=== PATIENT | male | born 1985 | race African-American/Black ===

== ENCOUNTER 2023-11-23 08:50 | Outpatient (CLI) | payer BC, SELFPAY | END 2023-11-23 08:51 | disposition home or self-care (01) | PROVIDERS: PCP Family Medicine; Visit Provider Family Medicine | DX: Z00.00 Encounter for general adult medical examination without abnormal findings (principal); R03.0 Elevated blood-pressure reading, without diagnosis of hypertension; F32.9 Major depressive disorder, single episode, unspecified; Z13.6 Encounter for screening for cardiovascular disorders | CPT/HCPCS: 80053; 80061; 84443 ==

== ENCOUNTER 2023-11-28 10:08 | Outpatient (CLI) | payer BC, SELFPAY ==
--- OUTSIDE RECORDS SUMMARY | 2023-12-15 19:43 | XMS_ITS | Data Portability ---
Author Organization [facility], [facility] Address [address] [place] [address] [address] [place] [address] Assessment Encounter Date Assessment Date Assessment LastModified by Organization Details LastModified Time 12/06/2023 12/06/2023 38 Y/O MALE, SEEN FOR PHIMOSIS, TIGHT, UNABLE TO RETRACT, PAIN WITH ERECTIONS. REVIEWED OPTIONS PLAN HE WILL DECIDE ON SCHEDULING CIRC. PROCEDURE EXPLAINED IN DETAIL, RISKS, DELAY IN HEALING.ALL QUESTIONS ANSWERED. [email or web address] Not available 12/06/2023 17:37:43 Plan of Treatment Reminders Order Date Submit Date Provider Last Modified By Organization Details Last Modified Time Details Appointments None record ed. Lab None record ed. Referral None record ed. Procedures None record ed. Surgeries None record ed. Imaging None record ed. Medication Orders None record ed. Patient TargetsNo targets recorded. Patient InstructionsNo instructions recorded. Reason for Referral None Reported. Problems Name Status Onset Date Resolution Date Notes Provider Name and Address Organization Details Recorded Time Redundant prepuce and phimosis Active 4 Abdirahman Cole MD [address] [place], [place] [address], [place], [address] 12/06/2023 17:38:56 Problem Notes None recorded. Medical Equipment None Reported. Allergies No known drug allergies Medications Name Sig Start Date Stop Date Status Note LastModified by Organization Details LastModified Time escitalopram 10 mg tablet TAKE 1 TABLET BY MOUTH EVERY DAY active Not Available Not Available No t Available Vitals Date Recorded Body height Body mass index (BMI) Body weight Provider Name and Address Organization Details Last Updated DateTime 12/06/2023 175.26 cm 20.7 kg/m2 53014.93 g Kelly Chilel [facility] 12/06/2023 15:54:06 Social History Question Answer Notes LastModified by Organizat ion Details LastModified Time Tobacco Smoking Status Never Smoker Kelly boyle [facility] 12/06/2023 15:55:08 What Is Your Level Of Alcohol Consumption? Occasional Information not available 12/06/2023 What Is Your Level Of Caffeine Consumption? Moderate Information not available 12/06/2023 What Was The Date Of Your Most Recent Tobacco Screening? 12/06/2023 Information not available 12/06/2023 Sex: Unknown Functional Status None recorded. Mental Status None recorded. Family History Relationship Description Onset Age of this Age Resolved Age Notes Father Family history of stroke Mother Family history of Hypertension Medical History Condition Response Other N High Blood Pressure N Kidney Stones N Depression N Lung Disease N GERD/Acid Reflux N Sexually Transmitted Infection N Cancer N High Cholesterol N Diabetes N Bleeding Disorder N Heart Disease N Immunizations Vaccine Type Date Status Provider Name and Address Organization Details Recorded Time Tdap 05/23/2022 completed GLADYS Valdes [facility] 12/06/2023 15:54:13 Hep B, adult 05/23/2022 completed Kelly boyle [facility] 12/06/2023 15:54:13 Influenza, split virus, quadrivalent, PF 05/23/2022 completed Kelly boyle [facility] 12/06/2023 15:54:13 Past Encounters Encounter ID Performer Location Encounter Start Date Encounter Closed Date Diagnosis/Indication Diagnosis SNOMED-CT Code [id number] Abdirahman Cole MD [facility] [address] [place] [address] 12/06/2023 15:48:50 12/06/2023 17:39:15 Redundant prepuce and phimosis [id number] Health Concerns Section Related Observation LastModified by Organization Detai ls LastModified Time None Recorded Concern Status LastModified by Organization Details LastModified Time None Recorded Advance Directives Directive None Recorded Payers Encounter Date Sequence Insurance Name Policy Number Policy Rader Covered Member ID Rader Member ID Guarantor Name 12/06/2023 1 [employer] [id number] Alen Malhotra [id number] Alen Mathiasjamila Notes Date Note Type Note Provider Name and Address Organization Details Recorded Time 12/06/2023 text/html HPI Notes: 38 YO M HERE TODAY FOR PHIMOSIS . DOES NOT RETRACT , PAIN WITH ERECTIONS. INTERESTED IN CIRC. Abdirahman Cole MD [address], [address], [facility] 12/06/2023 17:39:12
--- OUTSIDE RECORDS SUMMARY | 2023-12-15 19:44 | XMS_ITS | Continuity of Care Document ---
Author Organization [facility], [facility] Address [address] [place] [place] [address] Assessment Encounter Date Assessment Date Assessment LastModified [...] and phimosis Active 4 Abdirahman Cole MD [address] [place] [address],[address], [place], [address] 12/06/2023 17:38:56 Problem Notes None recorded. [...] Updated DateTime 12/06/2023 175.26 cm 20.7 kg/m2 53022.93 g Kelly Chilel [facility] 12/06/2023 15:54:06 Social History Question Answer Notes LastModified by Organizat ion Details LastModified Time Tobacco Smoking Status Never Smoker Kelly boyle [facility] 12/06/2023 15:55:08 What Is Your Level Of Alcohol Consumption? Occasional Information not available 12/06/2023 What Is Your Level Of Caffeine Consumption? Moderate Information not available 12/06/2023 What Was The Date Of Your Most Recent Tobacco Screening? 12/06/2023 Information not available 12/06/2023 Sex: Male Functional Status None recorded. Mental Status None [...] Organization Details Recorded Time Tdap 05/23/2022 completed Kelly boyle [facility] 12/06/2023 15:54:13 Hep B, adult 05/23/2022 completed Kelly boyle [facility] 12/06/2023 15:54:13 Influenza, split virus, quadrivalent, PF 05/23/2022 completed Kelly boyle [facility] 12/06/2023 15:54:13 Past Encounters Encounter ID Performer Location Encounter Start Date Encounter Closed Date Diagnosis/Indication Diagnosis SNOMED-CT Code [id number] Abdirahman Cole MD [facility] [address] [place] [address] 12/06/2023 15:48:50 12/06/2023 17:39:15 Redundant prepuce and phimosis [id number] Health Concerns Section Related Observation LastModified by Organization Detai ls LastModified Time None Recorded Concern Status LastModified by Organization Details LastModified Time None Recorded Payers Encounter Date Sequence Insurance Name Policy Number Policy Rader Covered Member ID Rader Member ID Guarantor Name 12/06/2023 1 [id number] [id number] Alen Marya [id number] Alen Marya Notes Date Note Type Note Provider Name and Address Organization Details Recorded Time 12/06/2023 text/html HPI Notes: 38 YO M HERE TODAY FOR PHIMOSIS . DOES NOT RETRACT , PAIN WITH ERECTIONS. INTERESTED IN CIRC. Abdirahman Cole MD [address] [place] [address],[facility] [address], [place], [address], [facility] 12/06/2023 17:39:12
== END 2023-11-28 10:09 | disposition home or self-care (01) ==
LOC: NFLDREF 12-15 19:42
PROVIDERS: PCP Family Medicine; Referring Provider Family Medicine; Visit Provider Family Medicine
DX: R73.09 Other abnormal glucose (principal)
CPT/HCPCS: 82947

== ENCOUNTER 2024-05-13 09:42 | Outpatient (CLI) | payer BC, SELFPAY | END 2024-05-13 09:43 | disposition home or self-care (01) | PROVIDERS: PCP Family Medicine; Visit Provider Physician Assistant Medical | DX: E11.9 Type 2 diabetes mellitus without complications (principal); R03.0 Elevated blood-pressure reading, without diagnosis of hypertension; R63.4 Abnormal weight loss; R53.1 Weakness; R19.7 Diarrhea, unspecified | CPT/HCPCS: 82043; 82570; 84443 ==

== ENCOUNTER 2025-05-07 11:02 | Emergency (ER) | payer OTHER, BC, SELFPAY ==
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
--- OUTSIDE RECORDS SUMMARY | 2025-05-03 15:40 | XMS_ITS | Encounter Summary ---
Author Organization [facility] Address [address] [place] [address] Care Team Providers Care Landing Worker Name Role Phone Kareen Colvin PA-C Primary Care Provider Encounter Details Date Type Department Care Team (Late st Contact Info) Description 05/03/2025 3:40 PM PROGRAM ADVISOR Ancillary Procedure [facility] [address] [place] [phone] Isamar Stuart MD [address] [place] [address] Social History Tobacco Use Types Packs/Day Years Used Date Smoking Tobacco: Never Assessed Sex and Gender Information Value Date Recorded Sex Assigned at Not on file Legal Sex Male 3:00 PM PROGRAM ADVISOR Gender Identity Not on file Sexual Orientation Not on file documented as of this encounter Functional Status * Calculated C-SSRS Risk Score (Lifetime/Recent) Answer Date of Assessment Author No Risk Indicated 05/03/2025 3:16 PM PROGRAM ADVISOR Koki Salas RN * [place] Suicide Severity Rating Scale (Screener/Recent Self-Report) Question Answer Date of Assessment Author 1. Wish to be (Past 1 Month) No 025 3:16 PM PROGRAM ADVISOR Koki Arguello RN 2. Non-Specific Active Suici mervin Thoughts (Past 1 Month) No 05/03/2025 3:16 PM PROGRAM ADVISOR Oskar Arguello RN 6. Suicidal Behavior (Lifetime) No 3:16 PM PROGRAM ADVISOR FavoriteKoki RN documented as of this encounter Plan of Treatment Upcoming Encounters Date Type Department Care Team (Late st Contact Info) Description 06/25/2025 9:20 AM PROGRAM ADVISOR Office Visit [facility] Neurosurgery [facility] [address] [facility] [address] [place] [address] Isamar Stuart MD [address] [place], [place] [phone] Nolan Roblero, ROTOR PLATE WASHER [address] [facility] [address] [place], [place] [id number] 08/05/2025 9:30 AM PROGRAM ADVISOR Virtual Visit M [facility] [address] [facility] 3rd [place] [phone] Isamar Stuart MD [address] [place], [place] [address] Bhakti De La Torre PA-C [address] [place], [place] [phone] documented as of this encounter Procedures Procedure Name Priority Date/Time Associated Diagnosis Comments POC US RESUSCITATION STAT 05/03/2025 3:37 PM PROGRAM ADVISOR documented in this encounter Results * POC US RESUSCITATION (05/03/2025 3:37 PM PROGRAM ADVISOR) Anatomical Region Laterality Modality Other Impressions 05/03/2025 3:37 PM PROGRAM ADVISOR Bedside FAST (Focused Assessment with Sonography in [...] fluid within the pericardium. IMPRESSION: Negative FAST us Isamar KIRBY POCUS Final Result documented in this encounter Visit Diagnoses Not on filedocumented in this encounter Care Teams Landing Worker Relationship Specialty Start Date End Date Kareen Colvin PA-C [facility] [address] [place] [address] PCP - General Physician Organizational Effectiveness Director 05/03/25 documented as of this encounter
--- OUTSIDE RECORDS SUMMARY | 2025-05-07 11:05 | XMS_ITS | Encounter Summary ---
Author Organization [place] Address [address] [place] [address] Care Team Providers Care Social Services Name Role Phone Kareen Colvin PA-C Primary Care Provider Encounter Details Date Type Department Care Team (Latest Contact Info) Description 05/03/2025 Travel Social History Tobacco Use Types Packs/Day Years Used Date Smoking Tobacco: Never Assessed Sex and Gender Information Value Date Recorded Sex Assigned at Not on file Legal Sex Male 3:00 PM GIVING OFFICER Gender Identity Not on file Sexual Orientation Not on file documented as of this encounter Functional Status * Calculated C-SSRS Risk Score (Lifetime/Recent) Answer Date of Assessment Author No Risk Indicated 05/03/2025 3:16 PM GIVING OFFICER Koki Salas RN * [place] Suicide Severity Rating Scale (Screener/Recent Self-Report) Question Answer Date of Assessment Author 1. Wish to be (Past 1 Month) No 025 3:16 PM GIVING OFFICER Koki Arguello RN 2. Non-Specific Active Suici mervin Thoughts (Past 1 Month) No 05/03/2025 3:16 PM GIVING OFFICER Oskar Arguello RN 6. Suicidal Behavior (Lifetime) No 3:16 PM GIVING OFFICER Koki Arguello RN documented as of this encounter Plan of Treatment Upcoming Encounters Date Type Department Care Team (Late st Contact Info) Description 06/25/2025 9:20 AM GIVING OFFICER Office Visit [address] [place] [address] Isamar Stuart MD [address] [place], [place] [phone] Nolan Roblero, MECHANIC WELDER TRUCK DRIVER [address] [id number] 08/05/2025 9:30 AM GIVING OFFICER Virtual Visit [facility] [address] [place] [phone] Isamar Stuart MD [address] [place], [place] [address] Bhakti De La Torre PA-C [address] [place] [id number] documented as of this encounter Visit Diagnoses Not on filedocumented in this encounter Care Teams Social Services Relationship Specialty Start Date End Date Kareen Colvin PA-C [facility] [address] [place] [address] PCP - General Physician Gasket Notcher 05/03/25 documented as of this encounter
--- OUTSIDE RECORDS SUMMARY | 2025-05-07 11:05 | XMS_ITS | Clinical Summary ---
Author Organization [facility] Address [address], [place] [address] Care Team Providers Care Tire Worker Name Role Phone Kareen Colvin PA-C Primary Care Provider [phone] Source Comments You are receiving this document as you are listed as the primary care provider,follow-up provider, or the patient has been referred to you for consultation.This is in compliance with the Medicare and[facility] EHR Incentive Program,which states Providers who transition their patient to another setting of careor provider of care or refers their patient to another provider of care shouldprovide summary care record for each transition of care or referral. [facility] Allergies No known active allergies Medications metFORMIN XR (GLUCOPHAGE XR) 500 MG 24 hour release tabletIndicatio ns:Type 2 diabetes mellitus with hyperglycemia, without long-term current use of insulin (HRC) Take with food: Week 1: Take 1 tablet per day. Week 2: Take 2 tablets per day Week 3: Take 3 tablets per day. Week 4 and after: Take 4 tablets per day. If you get nausea, upset stomach, or diarrhea after increasing dose, decrease back to the dose you felt well on. 120 Tablet 5 5 Active Active Problems No known active problems Social History Tobacco Use Types Packs/Day Years Used Date Smoking Tobacco: Never Smokeless Tobacco: Never Tobacco Cessation:Counseling Given: Not Answered Sex and Gender Information Value Date Recorded Sex Assigned at Not on file Legal Sex Male 2:37 PM AIRCRAFT LANDING GEAR INSPECTOR Gender Identity Not on file Sexual Orientation Not on file Last Filed Vital Signs Vital Sign Reading Time Taken Comments Blood Pressure 114/76 07/18/2024 1:47 PM AIRCRAFT LANDING GEAR INSPECTOR Pulse 85 07/18/2024 1:47 PM AIRCRAFT LANDING GEAR INSPECTOR Temperature - - Respiratory Rate - - Oxygen Saturation - - Inhaled Oxygen Concentration - - Weight 63.6 kg (140 lb 4.8 oz) 07/18/2024 1:47 P M AIRCRAFT LANDING GEAR INSPECTOR Height 175.3 cm (5' 9) 07/18/2024 1:47 PM AIRCRAFT LANDING GEAR INSPECTOR Body Mass Index 20.72 07/18/2024 1:47 PM AIRCRAFT LANDING GEAR INSPECTOR Plan of Treatment Health Maintenance Due Date Last Done Comments Diabetes: Creatinine 1986 Diabetes: Foot Exam 1986 Diabetes: Lipid Panel 1986 Hep C Screening (Preventive Services) 1986 Tuberculosis Screening 1986 Hep B Screening ([facility]) 1987 HIV Screening (Preventive Services) 2002 Adult Preventive Visit 02/19/2004 HepB Vaccine (1) 2005 Pneumococcal Vaccine (1 of 2 - PCV) 2005 HPV Vaccine (1 - 3-dose SCDM series) 2013 Diabetes: HGBA1C 10/16/2024 07/18/2024 COVID-19 Vaccine (1 - 2023-2 5 season) 2025 Influenza Vaccine (#1) 2025 05/23/2022 Diabetes: Albumin/Creatinine Ratio, Urine 07/18/2025 07/18/2024 Diabetes: Eye Exam 12/16/2025 12/16/2024 DTaP/Tdap/Td Vaccine (2 - Tdap) 05/23/2032 Zoster/Shingles Vaccine (1 of 2) 02/19/2036 HepA Vaccine Aged Out No longer eligi ble based on patient's age to complete this topic Hib Vaccine Aged Out No longer eligi ble based on patient's age to complete this topic IPV (Polio) Vaccine Aged Out No longe r eligible based on patient's age to complete this topic MCV4 Vaccine Aged Out No longer eligi ble based on patient's age to complete this topic Meningococcal B Vaccine Aged Out No l onger eligible based on patient's age to complete this topic Procedures Procedure Name Priority Date/Time Associated Diagnosis Comments YUE (DIABETIC EYE EXAM) 12/16/2024 ALBUMIN/CREAT RATIO Routine 07/18/2024 3 :01 PM AIRCRAFT LANDING GEAR INSPECTOR Other specified diabetes mellitus without complication, without long-term current use of insulin (HRC) HGB A1C Routine 07/18/2024 2:44 PM AIRCRAFT LANDING GEAR INSPECTOR Other specified diabetes mellitus without complication, without long-term current use of insulin (HRC) from Last 3 Months or Most Recently Relevant to Health Maintenance Results * YUE (DIABETIC EYE EXAM) (12/16/2024) us Interface Provider DUMMY/OTHER/AR Final Resu lt * Albumin/Creatinine Ratio,Random Urine (07/18/2024 3:01 PM AIRCRAFT LANDING GEAR INSPECTOR) Albumin/Creati nine Ratio, Urine, Random 7 <30 mg/g 07/18/2024 5:23 PM [facility] Albumin, Urine, Random 2.3 mg/L 07/18/2024 5:23 PM [facility] Creatinine, Urine, Random 35 >20 mg/dL mg/dL 07/18/2024 5:23 PM [facility] Urine Non-blood Collection / Unknown 07/18/2024 3:01 PM AIRCRAFT LANDING GEAR INSPECTOR 07/18/2024 3:01 PM AIRCRAFT LANDING GEAR INSPECTOR Erika Rivera MD LAB_1 Final Result [facility] [address] [place] [address] * (ABNORMAL) HgbA1c - Collect in Lab (07/18/2024 2:44 PM AIRCRAFT LANDING GEAR INSPECTOR) Hemoglobin A1C 8.1(H) <=5.6 % 07/19/2024 8:30 AM [facility] Estimated Average Glucose (Calc) 186 < 117 mg/dL 07/19/2024 8:30 AM [facility] Comment:Estimated average gl ucose (eAG) converts A1c into glucose units (mg/dL) and estimates average glucose over the past approximately 3 months. The eAG reference interval (<117 mg/dL) corresponds to an A1c of <5.7%. Blood Venipuncture / Unknown 07/18/2024 2:44 PM AIRCRAFT LANDING GEAR INSPECTOR 07/18/2024 3:03 PM AIRCRAFT LANDING GEAR INSPECTOR Narrative [facility] - 07/19/2024 8:30 AM AIRCRAFT LANDING GEAR INSPECTOR For patients not previously diagnosed with diabetes: 5.7-6.4%: Increased risk for diabetes 6.5% and greater: Diagnostic for diabetes For patients diagnosed with diabetes: <8.0%: Goal of therapy for ages 18-75 Clinicians may recommend a higher or lower goal for specific individuals. us Erika Rivera MD LAB_1 Final Result [facility] [address] [place] [address], [facility] from Last 3 Months or Most Recently Relevant to Health Maintenance Insurance [facility] OUT OF STATE Care Teams Tire Worker Relationship Specialty Start Date End Date Kareen Colvin PA-C [address] [place] [address] PCP - General Physician Director Of Vocational Training 07/18/24
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
--- OUTSIDE RECORDS SUMMARY | 2025-05-07 11:06 | XMS_ITS | Clinical Summary ---
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 Stuart MD LAB - BLOOD BANK TEST ORDER Edit ed Result - Final [facility] BLOOD BANK [address] [place] [address] * Hepatic Function Panel (Limited Occurrences) (05/03/2025 3:21 PM IN SERVICE COORDINATOR) Pathologist [facility] [place] Protein Total 8.1 6.4 - 8.3 g/dL 05/03/2025 4:12 PM IN SERVICE COORDINATOR [facility] LABORATORY Albumin 4.7 3.5 - 5.2 g/dL 05/03/2025 4:12 PM IN SERVICE COORDINATOR [facility] LABORAT[facility] Bilirubin Total 0.4 <=1.2 mg/dL 05/03/2025 4:12 PM IN SERVICE COORDINATOR [facility] LABORAT[facility] Alkaline Phosphatase 92 40 - 150 U/L 05/03/2025 4:12 PM IN SERVICE COORDINATOR [facility] LABORAT[facility] AST 30 0 - 45 U/L 05/03/2025 4:12 PM IN SERVICE COORDINATOR [facility] LABORAT[facility] ALT 38 0 - 70 U/L 05/03/2025 4:12 PM IN SERVICE COORDINATOR [facility] LAB[facility]AT[facility] Bilirubin Direct 0.13 0.00 - 0.30 mg/dL 05/03/2025 4:12 PM IN SERVICE COORDINATOR [facility] LAB[facility]AT[facility] Comment:As of 24, refer ence ranges and trending lines may vary depending on the testing location. Blood BLOOD SPECIMEN / Unknown Venipuncture / Unknown 05/03/2025 3:21 PM IN SERVICE COORDINATOR 05/03/2025 3:27 PM IN SERVICE COORDINATOR Isamar Stuart MD LAB - BLOOD ORDERABLES Final Res ult [facility] Acute [facility] Lab [address] Lab (1st floor, no room number) [place] [address] * INR (05/03/2025 3:21 PM IN SERVICE COORDINATOR) INR 1.15 0.85 - 1.15 05/03/2025 4:02 PM IN SERVICE COORDINATOR [facility] LABORATORY PT 14.3 11.8 - 14.8 Seconds 05/03/2025 4:02 PM IN SERVICE COORDINATOR [facility] LABORATORY Blood BLOOD SPECIMEN / Unknown Venipuncture / Unknown 05/03/2025 3:21 PM IN SERVICE COORDINATOR 05/03/2025 3:27 PM IN SERVICE COORDINATOR Result [facility] Isamar Stuart MD LAB - BLOOD ORDERABLES Final Res ult [facility] Lab [address] Lab (1st floor, no room number) [place] [address] * Partial thromboplastin time (05/03/2025 3:21 PM IN SERVICE COORDINATOR) aPTT 22 22 - 38 Seconds 05/03/2025 4:02 PM IN SERVICE COORDINATOR [facility] LABORATORY Blood BLOOD SPECIMEN / Unknown Venipuncture / Unknown 05/03/2025 3:21 PM IN SERVICE COORDINATOR 05/03/2025 3:27 PM IN SERVICE COORDINATOR Isamar Stuart MD LAB - BLOOD ORDERABLES Final Res ult [facility] [address] Lab (1st floor, no room number) [place] [address] * Lipase (05/03/2025 3:21 PM IN SERVICE COORDINATOR) Lipase 25 13 - 60 U/L 05/03/2025 4:12 PM IN SERVICE COORDINATOR [facility] LABORATORY Blood BLOOD SPECIMEN / Unknown Venipuncture / Unknown 05/03/2025 3:21 PM IN SERVICE COORDINATOR 05/03/2025 3:27 PM IN SERVICE COORDINATOR Result [facility] Isamar Stuart MD LAB - BLOOD ORDERABLES Final Res ult LABORATORY [facility] Acute [facility] Lab [address] [facility] Lab (1st floor, no room number) [place] [address], [facility] from Last 3 Months Care Teams Electrician Radio Relationship Specialty Start Date End Date Kareen Colvin PA-C [facility] [address] [place], [place] [id number] PCP - General Physician Dials Inspector 05/03/25 Nolan Roblero CNP [address] [address] Nurse Practitioner NURSE PRACTITIONER - ACUTE CARE 05/05/25 Isamar Stuart MD [address] [place] [address] Physician Emergency Medicine 05/05/25
[2025-05-07 11:27] VITALS: BP 135/82; PULSE 94; RESP 18; TEMP 36.9; O2SAT 97
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
--- NOTE | 2025-05-07 12:35 | CRLHL7_ITS ---
For Patients: As a result of the Century Cures Act, medical imaging exams and procedure reports are released immediately into your electronic medical record. You may view this report before your referring provider. If you have questions, please contact your health care provider. INDICATION: Blood-tinged sputum. TECHNIQUE: Chest 2 views. COMPARISON: None. FINDINGS: Cardiovascular and mediastinum: Heart size and vasculature are normal in caliber and appearance. Lungs and pleural spaces: Lungs are clear. No sign of infiltrate or mass. No sign of pleural effusion. No pneumothorax. Bones and soft tissues: No significant findings. IMPRESSION: No acute or significant findings. Dictated by Brenden Palm MD @ 05/07/2025 2:16:08 PM (Electronically Signed)
--- OUTSIDE RECORDS SUMMARY | 2025-05-07 12:39 | XMS_ITS | Data Portability ---
Author Organization [facility], [facility] Address [address] [place] [address] Assessment Encounter Date Assessment Date Assessment LastModified [...] Reason for Referral None Reported. Problems Name Problem SNOMED Code Status Onset Date Resolution Date Notes Provider Name and Address Organization Details Recorded Time Redundant prepuce and phimosis 549495146 Active 024 Abdirahman Cole MD [address], [phone], [facility] 4 17:38:56 Problem Notes None recorded. Medical Equipment [...] Updated DateTime 12/06/2023 175.26 cm 20.7 kg/m2 41388.93 g Maymuna Getachew [facility] 12/06/2023 15:54:06 Social History Question Answer Notes LastModified by [employer] Details LastModified Time Tobacco Smoking Status Never Smoker Kelly boyle [facility] 12/06/2023 15:55:08 What Is Your Level Of Caffeine Consumption? Moderate Information not available 12/06/2023 What Was The Date Of Your Most Recent Tobacco Screening? 12/06/2023 Information not available 12/06/2023 Sex: Unknown Functional Status Question Answer Note LastModified by [employer] Details LastModified Time What is your level of alcohol consumption? Occasional Information not available 12/06/2023 Mental Status None recorded. Family History Relationship Description Onset Age of this Age Resolved Age Notes LastModified by Organization Details LastModified Time Father Family history of stroke [email or web address] Not available 2023 15:54:47 Mother Family history of Hypertension [email or web address] Not available 05/2024 15:54:53 Medical History Condition Response Other N High Blood Pressure N Kidney Stones N Depression N Lung Disease N GERD/Acid Reflux N Diabetes N Sexually Transmitted Infection N Bleeding Disorder N Cancer N High Cholesterol N Heart Disease N Immunizations Vaccine Type Date Status Note Provider Nam e and Address Organization Details Recorded Time Tdap 05/23/2022 completed Kelly Wattjuan boyle [facility] 12/06/2023 15:54:13 Hep B, adult 05/23/2022 completed Chic[place]hala Wattud [facility] 12/06/2023 15:54:13 Influenza, split virus, quadrivalent, PF 05/23/2022 completed [place] Wattud [facility] 12/06/2023 15:54:13 Past Encounters Encounter ID Performer Location Encounter Start Date Encounter Closed Date Diagnosis/Indication Diagnosis SNOMED-CT Code Diagnosis ICD10 Code Diagnosis IMO Codes Diagnosis Note [id number] Abdirahman Cole MD [facility] [address] [place] [address] 12/06/2023 15:48:50 12/18/2023 10:59:37 Redundant prepuce and phimosis 425853894 N47.1 Health Concerns Section Related Observation LastModified by Organization Detai ls LastModified Time None Recorded Concern Status LastModified by Organization Details LastModified Time None Recorded Advance Directives Directive None Recorded Payers Insurance Date Sequence Insurance Name Policy Number Policy Rader Covered Member ID Rader Member ID Guarantor Name 12/18/2023 1 [place] [id number] Alen Pateau [id number] Alen Pateau 08/10/2024 PAYMENT PLAN Alen Pateau Notes Date Note Type Note Provider Name and Address Organization Details Recorded Time 12/06/2023 text/html 38 YOM HERE TODAY FOR PHIMOSIS . DOES NOT RETRACT , PAIN WITH ERECTIONS. INTERESTED IN CIRC. Abdirahman Cole MD [address], [place], [address], [facility] 12/06/2023 17:39:12
[2025-05-07] MEDS: ACETAMINOPHEN 500 MG TABLET 1000 MG PO (13:24)
[2025-05-07] MEDS: CYCLOBENZAPRINE HCL 10 MG TABLET PO (13:25)
[2025-05-07] MEDS: ONDANSETRON ODT 4 MG TAB PO (13:25)
== END 2025-05-07 15:40 | disposition home or self-care (01) ==
PROVIDERS: Emergency Provider Family Medicine; PCP Physician Assistant Medical
DX: M54.2 Cervicalgia (principal); M26.602 Left temporomandibular joint disorder, unspecified; S06.0X0A Concussion without loss of consciousness, initial encounter; Y04.2XXA Assault by strike against or bumped into by another person, initial encounter
CPT/HCPCS: 70486; 70491; 71046; 99285; A9270; Q9967

== ENCOUNTER 2025-05-09 11:41 | Outpatient (CLI) | payer BC, SELFPAY | END 2025-05-09 11:42 | disposition home or self-care (01) | PROVIDERS: PCP Physician Assistant Medical; Visit Provider Physician Assistant Medical | DX: E11.9 Type 2 diabetes mellitus without complications (principal) | CPT/HCPCS: 80053; 80061; 82306; 82607; 84443 ==